=== PATIENT | male | born 1960 | race Caucasian/White ===

== ENCOUNTER 2016-10-11 12:56 | Emergency (ER) | payer BC ==
[2016-10-11 13:24] VITALS: BP 124/91
[2016-10-11] MEDS ORDERED: Fluorescein Sodium TOPICAL* 1 MG TEST OPHTHALMIC ONE (15:18)
[2016-10-11] MEDS ORDERED: Tetracaine 0.5% OPTH.SOL 4 ML* 1 DROP BTL RIGHT EYE ONE (15:18)
--- NOTE | 2016-10-11 18:07 | UC ---
Tory Briceno Alfonso, scribed for Truman Allen MD on 10/11/16 at 1533 . Eye Complaint HPI - HPI Summary HPI Summary: This patient is a 56 year old M presenting to [facility] with a chief complaint of right eye pain since earlier today. Pt reports his "little cat got me in the right eye with his claw." The CC is described as burning and stabbing of the cornea. Pt rates the pain 7/10 in severity. Symptoms aggravated and alleviated by nothing. Pt does not wear contact lens. Patient medications reviewed this visit. - History of Current Complaint Chief Complaint: UCEye Stated Complaint: EYE INJURY-CAT SCRATCH Time Seen by Provider: 10/11/16 15:09 Hx Obtained From: Patient Onset/Duration: Sudden Onset, Lasting Hours - earlier today, Still Present Timing: Constant Severity Initially: Moderate Severity Currently: Moderate Pain Intensity: 7 Pain Scale Used: 0-10 Numeric Location of Injury: Other - Cornea Character: Sharp - Stabbing (and burning) Aggravating Factor(s): Nothing Alleviating Factor(s): Nothing Associated Signs And Symptoms: Negative: Fever - Allergies/Home Medications Allergies/Adverse Reactions: Allergies Allergy/AdvReac Type Severity Reaction Status Date / Time No Known Allergies Allergy Verified 11/14/15 19:58 PMH/Surg Hx/FS Hx/Imm Hx - Surgical History Surgical History: None - Family History Known Family History: Negative: Blood Disorder - Social History Alcohol Use: Occasionally Substance Use Type: None Smoking Status (MU): Never Smoked Tobacco Review of Systems Constitutional: Other - Negative fever Eyes: Other - Positive right eye pain All Other Systems Reviewed And Are Negative: Yes Physical Exam Triage Information Reviewed: Yes Appearance: Well-Appearing, No Pain Distress Vital Signs: Initial Vital Signs Temp 97.9 F 10/11/16 13:22 Pulse 59 10/11/16 13:22 Resp 18 10/11/16 13:22 BP 124/91 10/11/16 13:22 Pulse Ox 99 10/11/16 13:22 Vital Signs Reviewed: Yes Eyes: Positive: Other: - JESSEE. EMOI. No hyphema. Fluorescein stain in right eye reveals 2 mm corneal abrasion over the pupil. ENT: Positive: Normal ENT inspection Neck: Positive: Supple, Nontender Respiratory: Positive: Chest non-tender, No respiratory distress Cardiovascular: Positive: RRR Abdomen Description: Positive: Nontender, Soft Bowel Sounds: Positive: Present Musculoskeletal: Positive: Strength Intact, ROM Intact Neurological: Positive: Alert Psychological: Positive: Age Appropriate Behavior Skin Exam: Normal Eye Complaint Course/Dx - Course Course Of Treatment: ABRASION DOES NOT APPEAR TO BE DEEP. RX TOBREX. PT WILL F/ U WITH OPHTHALMOLOGY IF NOT COMPLETELY IMPROVED. - Differential Dx/Diagnosis Provider Diagnoses: RT CORNEAL ABRASION Discharge - Discharge Plan Condition: Stable Disposition: HOME Prescriptions: Tobramycin 0.3% OPHTH.LISBETH* 1 drop RIGHT EYE Q4H #1 btl Patient Education Materials: Corneal Abrasion (ED) Referrals: Gabriel Jack MD [Primary Care Provider] - Additional Instructions: FOLLOW UP WITH OPHTHALMOLOGY TOMORROW IF NOT COMPLETELY IMPROVED. GET RECHECKED FOR ANY WORSENING OF YOUR CONDITION OR QUESTIONS OR CONCERNS. The documentation as recorded by the Tory andino Alfonso accurately reflects the service I personally performed and the decisions made by me, Truman Allen MD.
== END 2016-10-11 15:53 | disposition home or self-care (01) ==
LOC: UCEAST 12:56
DX: S05.01XA Injury of conjunctiva and corneal abrasion without foreign body, right eye, initial encounter (principal); W55.03XA Scratched by cat, initial encounter
CPT/HCPCS: 99212; A9270-GY; G0463

== ENCOUNTER 2016-10-16 16:02 | Emergency (ER) | payer BC ==
[2016-10-16] MEDS ORDERED: Ondansetron INJ* 2 MG/ML VIAL IV ONE (17:11)
[2016-10-16] MEDS ORDERED: Morphine INJ* 4 MG/ML 1 ML SYRINGE IV ONE (17:11)
[2016-10-16] MEDS ORDERED: NS 0.9% 1000 ML* 1,000 ML IV ONE (17:11)
[2016-10-16 17:23] LABS: Hematocrit 45 % (42-52); Hemoglobin 14.8 g/dl (14.0-18.0); Mean Corpuscular HGB Conc 33 g/dl (31-36); Mean Corpuscular Hemoglobin 30 pg (27-31); Mean Corpuscular Volume 90 fL (80-94); Mean Platelet Volume 8 um3 (7.4-10.4); Red Blood Count 4.98 10^6/ul (4.0-5.4); Red Cell Distribution Width 13 % (10.5-15); White Blood Count 12.9 10^3/ul (3.5-10.8)
[2016-10-16 17:37] LABS: Urine Bilirubin Negative (Negative); Urine Glucose Negative (Negative); Urine Nitrite Negative (Negative)
[2016-10-16 17:39] LABS: Albumin 4.1 g/dL (3.2-5.2); BUN/Creatinine Ratio 8.6 (8-20); C Reactive Protein 105.89 mg/L (< 5.00); Calcium 9.8 mg/dL (8.6-10.3); EGFR African American 107.3 (>60); EGFR Non-African American 83.5 (>60); Globulin 3.3 g/dL (2-4); Potassium 4.3 mmol/L (3.5-5.0); Total Bilirubin 1.4 mg/dL (0.2-1.0); Total Protein 7.4 g/dL (6.4-8.9)
--- NOTE | 2016-10-16 18:19 | RAD ---
HISTORY: Right testicular pain COMPARISONS: None TECHNIQUE: Multiple transverse and longitudinal ultrasound images were obtained of the scrotum, using grayscale, color Doppler, and spectral Doppler imaging. FINDINGS: RIGHT: RIGHT TESTICLE: The right testicle measures 3.9 x 2.4 x 3.4 cm. The right testicle is homogeneous in echotexture, without testicular parenchymal mass. Normal arterial and venous waveforms are identified within the right testicle on spectral Doppler imaging. The right testicle is mildly hypervascular. RIGHT EPIDIDYMIS: The right epididymis measures 1.5 cm at the head. There is a 0.7 cm right epididymal head cyst. The right epididymis is enlarged and diffusely hypervascular. RIGHT SCROTUM: There is a trace right hydrocele LEFT: LEFT TESTICLE: The left testicle measures 4.1 x 1.9 x 2.8 cm. The left testicle is homogeneous in echotexture, without testicular parenchymal mass. Normal arterial and venous waveforms are identified within the left testicle on spectral Doppler imaging. The left testicle is mildly hypervascular. LEFT EPIDIDYMIS: The left epididymis measures 1.3 cm at the head. LEFT SCROTUM: There is no hydrocele or varicocele. OTHER: None IMPRESSION: 1. NO TESTICULAR PARENCHYMAL MASS. 2. NO SONOGRAPHIC FEATURES OF TORSION. PLEASE NOTE THAT PARTIAL OR INTERMITTENT TORSION MAY BE SONOGRAPHICALLY NORMAL. 3. THERE IS ENLARGEMENT AND HYPERVASCULARITY OF THE RIGHT EPIDIDYMIS CONSISTENT WITH RIGHT EPIDIDYMITIS, WITH MILD INCREASED VASCULARITY OF THE TESTICLES BILATERALLY WHICH MAY INDICATE BILATERAL ORCHITIS. 4. THERE IS A SMALL RIGHT HYDROCELE
[2016-10-16] MEDS ORDERED: Levofloxacin 750 MG IVPREMIX(* 750 MG/150 ML BAG IVPB ONE (18:38)
[2016-10-16] MEDS ORDERED: Ketorolac INJ* 30 MG/ML 1 ML VIAL IV PUSH ONE (18:39)
--- NOTE | 2016-10-16 20:22 | ED ---
Ragini Briceno Edward, scribed for Brett Gomez MD on 10/16/16 at 1714 . GI/ HPI - HPI Summary HPI Summary: 56 y/o male presents to ED c/o R testicle pain. The pain started two days ago and has gotten progressively worse. The pain is severe now rated at 8.5/10 but increases to a 10/10 on touch. Associated sx: cough two nights silvia (resolved), fever two nights ago (resolved). Two nights ago the pt sat down hard on his couch and and injured his hip. The next morning the patient woke up witha a swollen R testicle with pain. The pain has gotten progressively worse. Today the R testicle is severely painful rated at an 8.5/10. Denies penile discharge. Patient states his sexual partner had a yeast infection a couple of weeks ago. Patient felt a tingling in his penis after intercourse with partner just after his partner applied a cream that would treat her yeast infection. - History of Current Complaint Chief Complaint: EDUrogenitalProblems Time Seen by Provider: 10/16/16 17:06 Stated Complaint: TESTICULAR PAIN Hx Obtained From: Patient Onset/Duration: Started Days Ago Timing: Constant Severity: Moderate Current Severity: Severe Pain Intensity: 8 Location of Pain: Groin - R Additional Locations for Males: Testicles - R Associated Signs and Symptoms: Positive: Fever, Cough, Other: - R testicle pain and edema. Denies penile discharge - Allergy/Home Medications Allergies/Adverse Reactions: Allergies Allergy/AdvReac Type Severity Reaction Status Date / Time No Known Allergies Allergy Verified 11/14/15 19:58 PMH/Surg Hx/FS Hx/Imm Hx Previously Healthy: No Endocrine/Hematology History: Reports: Other Endocrine/Hematological Disorders - HLD Infectious Disease History: Denies: Traveled Outside the [place] in Last 30 Days - Family History Known Family History: Negative: Blood Disorder - Social History Lives: Alone Alcohol Use: Occasionally Substance Use Type: Reports: None Smoking Status (MU): Never Smoked Tobacco Review of Systems Positive: Fever Eyes: Negative ENT: Negative Cardiovascular: Negative Positive: Cough Gastrointestinal: Negative Positive: pain - R testicle and swelling. Negative: discharge Positive: Arthralgia - Hip pain Skin: Negative Neurological: Negative Psychological: Normal All Other Systems Reviewed And Are Negative: Yes Physical Exam - Summary Physical Exam Summary: VITAL SIGNS:~Reviewed. GENERAL:~ Patient is a well-developed and nourished male who is lying comfortable in the stretcher.~ Patient is not in any acute respiratory distress. HEAD AND FACE:~No signs of trauma.~ No ecchymosis, hematomas or skull depressions. No sinus tenderness. EYES:~PERRLA, EOMI x 2, No injected conjunctiva, no nystagmus. EARS:~Hearing grossly intact. Ear canals and tympanic membranes are within normal limits. MOUTH:~Oropharynx within normal limits. NECK:~Supple, trachea is midline, no adenopathy, no JVD, no carotid bruit, no c- spine tenderness, neck with full ROM. CHEST:~Symmetric, no tenderness at palpation LUNGS:~Clear to auscultation bilaterally. No wheezing or crackles. CVS:~Regular rate and rhythm, S1 and S2 present, no murmurs or gallops appreciated. ABDOMEN:~Soft, non-tender. No signs of distention. No rebound no guarding, and no masses palpated. Bowel sounds are normal. EXTREMITIES:~FROM in all major joints, no edema, no cyanosis or clubbing. NEURO:~Alert and oriented x 3. No acute neurological deficits. Speech is normal and follows commands. SKIN:~Dry and warm : R testicle swelling, very tender to palpation. No masses. L testicle normal. Circumcised penis, no discharge. Cremasteric reflx present. Triage Information Reviewed: Yes Vital Signs On Initial Exam: Initial Vitals Temp Pulse Resp BP Pulse Ox 100.8 F 99 20 136/74 96 10/16/16 16:04 10/16/16 16:04 10/16/16 16:04 10/16/16 16:04 10/16/16 16:04 Vital Signs Reviewed: Yes Diagnostics - Vital Signs Vital Signs Temp Pulse Resp BP Pulse Ox 10/16/16 16:04 100.8 F 99 20 136/74 96 - Laboratory Lab Results: Lab Results 10/16/16 10/16/16 10/16/16 Range/Units 17:00 17:00 17:24 WBC 12.9 H (3.5-10.8) 10^3/ul RBC 4.98 (4.0-5.4) 10^6/ul Hgb 14.8 (14.0-18.0) g/dl Hct 45 (42-52) % MCV 90 (80-94) fL MCH 30 (27-31) pg MCHC 33 (31-36) g/dl RDW 13 (10.5-15) % Plt Count 208 (150-450) 10^3/ul MPV 8 (7.4-10.4) um3 Neut % (Auto) 80.5 (38-83) % Lymph % (Auto) 7.7 L (25-47) % [place] % (Auto) 11.4 H (1-9) % Eos % (Auto) 0.1 (0-6) % Baso % (Auto) 0.3 (0-2) % Absolute Neuts (auto) 10.4 H (1.5-7.7) 10^3/ul Absolute Lymphs (auto) 1.0 (1.0-4.8) 10^3/ul Absolute Monos (auto) 1.5 H (0-0.8) 10^3/ul Absolute Eos (auto) 0 (0-0.6) 10^3/ul Absolute Basos (auto) 0 (0-0.2) 10^3/ul Absolute Nucleated RBC 0 10^3/ul Nucleated RBC % 0 Sodium 132 L (133-145) mmol/L Potassium 4.3 (3.5-5.0) mmol/L Chloride 98 L (101-111) mmol/L Carbon Dioxide 28 (22-32) mmol/L Anion Gap 6 (2-11) mmol/L BUN 8 (6-24) mg/dL Creatinine 0.93 (0.67-1.17) mg/dL Est GFR ( Amer) 107.3 (>60) Est GFR (Non-Af Amer) 83.5 (>60) BUN/Creatinine Ratio 8.6 (8-20) Glucose 109 H (70-100) mg/dL Calcium 9.8 (8.6-10.3) mg/dL Total Bilirubin 1.40 H (0.2-1.0) mg/dL AST 42 H (13-39) U/L ALT 36 (7-52) U/L Alkaline Phosphatase 81 (34-104) U/L C-Reactive Protein 105.89 H (< 5.00) mg/L Total Protein 7.4 (6.4-8.9) g/dL Albumin 4.1 (3.2-5.2) g/dL Globulin 3.3 (2-4) g/dL Albumin/Globulin Ratio 1.2 (1-3) Urine Color Yellow Urine Appearance Clear Urine pH 7.0 (5-9) Ur Specific [place] 1.013 (1.010-1.030) Urine Protein Negative (Negative) Urine Ketones 1+ H (Negative) Urine Blood Negative (Negative) Urine Nitrate Negative (Negative) Urine Bilirubin Negative (Negative) Urine Urobilinogen Negative (Negative) Ur Leukocyte Esterase Negative (Negative) Urine Glucose Negative (Negative) Urine Ascorbic Acid * H (Negative) Result Diagrams: 10/16/16 17:00 10/16/16 17:00 Lab Statement: Any lab studies that have been ordered have been reviewed, and results considered in the medical decision making process. - Ultrasound No standard instances Ultrasound Interpretation: Positive (See Comments) - TESTICULAR US - 1. NO TESTICULAR PARENCHYMAL MASS. 2. NO SONOGRAPHIC FEATURES OF TORSION. PLEASE NOTE THAT PARTIAL OR INTERMITTENT TORSION MAY BE SONOGRAPHICALLY NORMAL. 3. THERE IS ENLARGEMENT AND HYPERVASCULARITY OF THE RIGHT EPIDIDYMIS CONSISTENT WITH RIGHT EPIDIDYMITIS, WITH MILD INCREASED VASCULARITY OF THE TESTICLES BILATERALLY WHICH MAY INDICATE BILATERAL ORCHITIS. 4. THERE IS A SMALL RIGHT HYDROCELE Ultrasound Interpretation Completed By: Da KULKARNI Course/Dx - Course Assessment/Plan: 56 y/o male presents to ED c/o R testicle pain. The pain started two days ago and has gotten progressively worse. The pain is severe now rated at 8.5/10 but increases to a 10/10 on touch. Associated sx: cough two nights silvia (resolved), fever two nights ago (resolved). Two nights ago the pt sat down hard on his couch and and injured his hip. The next morning the patient woke up witha a swollen R testicle with pain. The pain has gotten progressively worse. Today the R testicle is severely painful rated at an 8.5/ 10. Denies penile discharge. Patient states his sexual partner had a yeast infection a couple of weeks ago. Patient felt a tingling in his penis after intercourse with partner just after his partner applied a cream that would treat her yeast infection. Test results show WBC 12.9, CRP 105.8, UA (-) UTI. TESTICULAR US showed right epididymitis, bilateral orchitis and a small right hydrocele. We sent for GCN and chlamydia, which will be f/u by PCP even though there is no discharge and the reports he is in a single monogamous relationship , we placed levaquin for epididymitis and f/u with urology. The patient was given morphine, toradol and 1 dose of Levaquin. The patient will be d/c with f/ u with the patients PCP and urology. At this point, the pt does not want to be treated for STDs until the cultures come back. All questions were answered at patient satisfaction. There were no further complaints or concerns. Lung exam before discharge: CTA B/L. Good air exchange. No wheezing or crackles heard. CVS: S1 and S2 present. No murmurs appreciated. Patient is alert and oriented x 3. Patient is hemodynamically stable. Patient will be discharged home with follow up PCP in the next 2-3 days - Diagnoses Provider Diagnoses: Orchitis and epididymitis, Hydrocele Discharge - Discharge Plan Condition: Stable Disposition: HOME Prescriptions: HYDROcodone/ACETAMIN 5-325 MG* [Dickens 5-325 TAB*] 1 tab PO Q6H PRN #10 tab MDD 4 tabs PRN Reason: Pain Ibuprofen TAB* [Motrin TAB* 800 MG] 800 mg PO Q8H PRN #30 tab PRN Reason: Pain Levofloxacin TAB* [Levaquin TAB*] 750 mg PO DAILY #10 tab Patient Education Materials: Epididymitis (ED), Orchitis (ED), Hydrocele (ED) Referrals: Gabriel Jack MD [Primary Care Provider] - 3 Days (2-3 days) The documentation as recorded by the Ragini andino Edward accurately reflects the service I personally performed and the decisions made by , Brett Gomez MD.
[2016-10-16 20:34] VITALS: BP 123/60
== END 2016-10-16 20:33 | disposition home or self-care (01) ==
LOC: ED 16:02
DX: N45.3 Epididymo-orchitis (principal); N43.3 Hydrocele, unspecified; R50.9 Fever, unspecified; R05 Cough; N50.811 Right testicular pain
CPT/HCPCS: 36415; 76870; 80053; 81003; 85025; 86140; 87491; 87591; 96374; 96375; 99283; J1885; J2270; J2405

== ENCOUNTER 2017-02-22 15:12 | Emergency (ER) | payer BC ==
[2017-02-22 15:30] VITALS: BP 138/76
--- NOTE | 2017-02-22 16:02 | UC ---
Vilma Briceno Emily, scribed for Taya Alfaro MD on 02/22/17 at 1558 . Complaint Male HPI - HPI Summary HPI Summary: This patient is a 56 year old M presenting to urgent care with request for testing for Chlamydia. Pt states that the woman he is dating has tested positive for chlamydia. Pt reports using condoms during intercourse always. Last intercourse 3 weeks ago. The patient denies all symptoms - no fevers, chills, dysuria, hematuria, penile pain, discharge, odor, or dysuria. No lesions to penis or testicles. Pt with h/o STDs. Pt states she did not report + gonorrhea. Pt without other STDs Patients medications reviewed this visit. - History of Current Complaint Chief Complaint: UCGU Stated Complaint: PERSONAL Time Seen by Provider: 02/22/17 15:34 Hx Obtained From: Patient Onset/Duration: Sudden Onset, Lasting Hours, Still Present Severity Currently: None Pain Intensity: 0 Pain Scale Used: 0-10 Numeric - Allergies/Home Medications Allergies/Adverse Reactions: Allergies Allergy/AdvReac Type Severity Reaction Status Date / Time No Known Allergies Allergy Verified 02/22/17 15:30 PMH/Surg Hx/FS Hx/Imm Hx Previously Healthy: No Endocrine History: Other Other Endocrine History: Hypercholesterolemia Cardiovascular History: Other Other Cardiovascular History: Negative hypertension - Surgical History Surgical History: None - Family History Known Family History: Positive: Cardiac Disease Negative: Blood Disorder - Social History Lives: Alone Alcohol Use: Occasionally Substance Use Type: None Smoking Status (MU): Never Smoked Tobacco Review of Systems Constitutional: Negative ENT: Sore Throat Genitourinary: Other - Negative penile discharge, odor in urine, penile pain, and dysuria All Other Systems Reviewed And Are Negative: Yes Physical Exam Triage Information Reviewed: Yes Appearance: Well-Appearing, No Pain Distress, Well-Nourished Vital Signs: Initial Vital Signs Temp 97.3 F 02/22/17 15:27 Pulse 66 02/22/17 15:27 Resp 18 02/22/17 15:27 BP 138/76 02/22/17 15:27 Pulse Ox 100 02/22/17 15:27 Vital Signs Reviewed: Yes Eye Exam: Normal Eyes: Positive: Conjunctiva Clear ENT Exam: Normal ENT: Positive: Normal ENT inspection, Hearing grossly normal, Pharynx normal, Pharyngeal erythema, TMs normal Dental Exam: Normal Neck exam: Normal Neck: Positive: Supple, Nontender, No Lymphadenopathy Respiratory Exam: Normal Respiratory: Positive: Chest non-tender, Lungs clear, Normal breath sounds, No respiratory distress, No accessory muscle use Cardiovascular Exam: Normal Cardiovascular: Positive: RRR, No Murmur, Pulses Normal, Brisk Capillary Refill Abdominal Exam: Normal Abdomen Description: Positive: Nontender, No Organomegaly, Soft, Other:. Negative: CVA Tenderness (R), CVA Tenderness (L) Bowel Sounds: Positive: Present Musculoskeletal Exam: Normal Neurological Exam: Normal Psychological Exam: Normal Skin Exam: Normal Complaint Male Course/Dx - Course Course Of Treatment: d/w presents requesting STD testing after partner + chlaymdia. Pt was wearing condom. Pt wihtout symptoms. after counseling, pt declined tx today. will check urine. pt requesting call with results. pt aware health dept will be notified it +. Pt questions answered - Differential Dx/Diagnosis Provider Diagnoses: STD exposure Discharge - Discharge Plan Condition: Stable Disposition: HOME Patient Education Materials: Chlamydia (ED), Sexually Transmitted Diseases (ED) Referrals: Gabriel Jack MD [Primary Care Provider] - Additional Instructions: Your urine sample has been sent for testing for Chlamydia and Gonorrhea infections. These results take 2-3 days to come back. If you require treatment , you will receive a call from one of our care team members. There is a notation in your chart requesting a call to you with the results. If you do not receive a call, you may call us at [phone] in 3 days. If you have one of these infections, the health department will also be notified as is required by law. It will be recommended you contact all of your sexual partners if you have an infection. If you have any other questions or concerns, return here, call your doctor, or go to the emergency department. The documentation as recorded by the Vilma andino Emily accurately reflects the service I personally performed and the decisions made by , Taya Alfaro MD.
--- NOTE | 2017-02-23 17:43 | UC ---
Progress - Progress Note Progress Note: call patient and notify that GC/Chlam was negative <Geovanna Turpin - Last Filed: 02/23/17 17:42> - Progress Note Progress Note: I was available for consult. This patient was seen by the [facility]. The patient was not presented to, seen by, or examined by me. -Keisha <Taya Alfaro - Last Filed: 02/24/17 11:36>
--- NOTE | 2017-02-24 10:01 | UC ---
Progress - Progress Note Progress Note: Neg urine culture no change [facility] 02/24/2017
== END 2017-02-22 16:13 | disposition home or self-care (01) ==
LOC: UCEAST 15:12
DX: Z20.2 Contact with and (suspected) exposure to infections with a predominantly sexual mode of transmission (principal)
CPT/HCPCS: 81003; 87086; 87491; 87591; 99211; G0463

== ENCOUNTER 2017-10-03 12:10 | Emergency (ER) | payer BC ==
[2017-10-03 13:36] LABS: Urine Appearance Clear; Urine Blood Negative (Negative); Urine Color Yellow; Urine Ketones Negative (Negative); Urine Protein Negative (Negative); Urine Specific Gravity 1.013 (1.010-1.030); Urine Urobilinogen Negative (Negative)
--- NOTE | 2017-10-03 13:44 | RAD ---
INDICATION: Right testicular pain. COMPARISON: Comparison is made with a prior study from October 16, 2016. TECHNIQUE: Multiple real-time images of the testicles were obtained including color Doppler images and Doppler tracings. FINDINGS: The testicles are normal in size, shape and echogenicity. The right testicle measured 4.3 x 2.3 x 2.9 cm and the left testicle measured 4.1 x 2.3 x 2.8 cm. No intratesticular mass is seen. There is symmetric vascular flow within both testicles. There is a 6 x 7 x 6 mm right epididymal head simple cyst. No hydrocele is present. There appears to be a small left varicocele. IMPRESSION: 1. NO EVIDENCE FOR TORSION OR EPIDIDYMITIS. 2. SMALL RIGHT EPIDIDYMAL HEAD CYST. 3. SMALL LEFT VARICOCELE.
[2017-10-03 14:51] VITALS: BP 119/69
--- NOTE | 2017-10-03 17:02 | ED ---
Nolberto Briceno Devyn, scribed for Brijesh Miller MD on 10/03/17 at 1406 . GI/ HPI - HPI Summary HPI Summary: This patient is a 57 year old M [place] with a chief complaint of dull, constant testicular pain, worse in the right, since yesterday morning. Pt reports pain in the lower back on both sides. Pt rates the pain 5/10 in severity. PMHx of epididymitis. Patient denies prostate infection, CP, SOB, N/D , measured fevers, edema, new sexual partners, and hematuria. SHx of EtOH 5-6 drinks per week. Non-smoker. PMHx of HLD and anxiety. - History of Current Complaint Chief Complaint: EDUrogenitalProblems Time Seen by Provider: 10/03/17 12:49 Stated Complaint: TESTICULAR PAIN Hx Obtained From: Patient Onset/Duration: Started Days Ago - yesterday morning, Still Present Timing: Constant Severity: Moderate Current Severity: Mild Pain Intensity: 5 Location of Pain: Groin - right testicle Pain Characteristics: Dull - Allergy/Home Medications Allergies/Adverse Reactions: Allergies Allergy/AdvReac Type Severity Reaction Status Date / Time No Known Allergies Allergy Verified 10/03/17 12:14 PMH/Surg Hx/FS Hx/Imm Hx Endocrine/Hematology History: Reports: Other Endocrine/Hematological Disorders - HLD Sensory History: Denies: Hx Deafness Infectious Disease History: No Infectious Disease History: Denies: Traveled Outside the [place] in Last 30 Days - Family History Known Family History: Positive: Cardiac Disease Negative: Blood Disorder - Social History Alcohol Use: Weekly Substance Use Type: Reports: None Smoking Status (MU): Never Smoked Tobacco Review of Systems Negative: Fever Negative: Chest Pain Negative: Shortness Of Breath Negative: Diarrhea, Nausea Positive: other - testicular pain. Negative: hematuria, pain - dull, constant Negative: Edema All Other Systems Reviewed And Are Negative: Yes Physical Exam - Summary Physical Exam Summary: Appearance: Well appearing, no pain distress Skin: warm, dry, reflects adequate perfusion. No testicular edema and tenderness. Right epididymis tenderness without mass. Head/face: normal Eyes: EOMI, JESSEE ENT: normal Neck: supple, non-tender Respiratory: CTA, breath sounds present Cardiovascular: RRR, pulses symmetrical Abdomen: non-tender, soft Bowel Sounds: present Musculoskeletal: normal, strength/ROM intact Neuro: normal, sensory motor intact, A&Ox3 Triage Information Reviewed: Yes Vital Signs On Initial Exam: Initial Vitals Temp Pulse Resp BP Pulse Ox 99.2 F 59 12 124/77 100 10/03/17 12:11 10/03/17 12:11 10/03/17 12:11 10/03/17 12:11 10/03/17 12:11 Vital Signs Reviewed: Yes Diagnostics - Vital Signs Vital Signs Temp Pulse Resp BP Pulse Ox 10/03/17 12:11 99.2 F 59 12 124/77 100 - Laboratory Lab Results: Lab Results 10/03/17 Range/Units 13:28 Urine Color Yellow Urine Appearance Clear Urine pH 6.0 (5-9) Ur Specific [place] 1.013 (1.010-1.030) Urine Protein Negative (Negative) Urine Ketones Negative (Negative) Urine Blood Negative (Negative) Urine Nitrate Negative (Negative) Urine Bilirubin Negative (Negative) Urine Urobilinogen Negative (Negative) Ur Leukocyte Esterase Negative (Negative) Urine Glucose Negative (Negative) Lab Statement: Any lab studies that have been ordered have been reviewed, and results considered in the medical decision making process. - Ultrasound No standard instances Ultrasound Interpretation Completed By: Radiologist - IMPRESSION: 1. NO EVIDENCE FOR TORSION OR EPIDIDYMITIS. 2. SMALL RIGHT EPIDIDYMAL HEAD CYST. 3. SMALL LEFT VARICOCELE. ER Doctor reviewed this report GIGU Course/Dx - Course Course Of Treatment: Patient with recurring right testicular discomfort. There is no evidence for epididymitis but there is a epididymal head cyst. This is likely causing discomfort. Urine is negative. Patient was placed on antibiotics and NSAID and will follow-up closely with the urologist. - Diagnoses Differential Diagnoses - Male: Other - Kidney stone, epididymitis, prostatitis, testicular cancer, hydrocele/varicocele Provider Diagnoses: Testicular pain, Cyst of epididymis determined by ultrasound Discharge - Sign-Out/Discharge Documenting (check all that apply): Discharge/Admit/Transfer - Discharge Plan Condition: Good Disposition: HOME Prescriptions: DOXYcycline CAP(*) [DOXYcycline 100MG CAP(*)] 100 mg PO BID #14 cap Naproxen [Naproxen 500 mg tab] 500 mg PO BID PRN #10 tablet.dr HUFFMAN Reason: Pain Patient Education Materials: Scrotal Pain (ED) Referrals: Gabriel Jack MD [Primary Care Provider] - Mike George MD [Medical Doctor] - Additional Instructions: Call in the morning to follow-up with urologist. Return with fever, increased discomfort, swelling, worse or other concerns. - Billing Disposition and Condition Condition: GOOD Disposition: Home The documentation as recorded by the Nolberto andino Devyn accurately reflects the service I personally performed and the decisions made by me, Brijesh Miller MD.
== END 2017-10-03 14:15 | disposition home or self-care (01) ==
LOC: ED 12:10
DX: N50.819 Testicular pain, unspecified (principal); N50.3 Cyst of epididymis
CPT/HCPCS: 76870; 81003; 99282